=== PATIENT | male | born 1960 | race Caucasian/White ===

== ENCOUNTER 2018-03-09 19:43 | Emergency (ER) | payer BC ==
[~2018-03-09] VITALS: Ht 175.3 cm; Wt 115.1 kg
[2018-03-09 19:45] VITALS: TEMP 36.6; Ht 175.3 cm; Wt 115.1 kg
[2018-03-09] MEDS ORDERED: LIDOCAINE 1% BUFFERED INJ 20 ML VIAL INFIL ONE (20:00)
[2018-03-09] MEDS ORDERED: DIPHTHERIA/TETANUS/PERTUSSIS 0.5 ML SYR/VIAL IM. ONE (20:00)
[2018-03-09 20:49] VITALS: BP 145/104; PULSE 86; O2SAT 94
--- NOTE | 2018-03-09 23:59 | EMERGENCY ROOM VISIT NOTE ---
History First contact with patient: 19:49 Chief Complaint: LACERATION/CUT (SUT/DERMABOND) Stated Complaint: CUT ON THUMB Nursing Triage Summary: Laceration to left thumb History of Present Illness The patient is a 57 year old male who presents to the Emergency Room with complaints of a laceration to the left thumb from a propeller on his drone. The patient reports no significant bleeding, and rates his discomfort a 2 out of 10. The patient is right-hand dominant. He denies any paresthesias or numbness of the thumb tip. Patient is uncertain of his last tetanus immunization. Review of Systems 6 system review was performed and was negative except for pertinent positives and negatives as indicated in history of present illness Past Medical/Surgical History Medical Problems: (1) No significant past medical history Surgical Problems: (1) No history of previous surgery Family History Unremarkable Social History Smoking Status: Never Smoker Alcohol Use: none Marital Status: Housing Status: lives with family Occupation Status: employed Physical Exam Vital Signs Date Time Temp Pulse Resp B/P (MAP) Pulse Ox O2 Delivery O2 Flow Rate FiO2 03/09/18 20:49 86 18 145/104 94 03/09/18 19:45 36.6 103 18 151/100 94 Room Air Physical Exam CONSTITUTIONAL: Healthy and well nourished. Alert and oriented X 3 with positive affect. She does not appear in any acute distress. HEENT: Normocephalic, atraumatic. Pupils equal, round and reactive. NECK: Full active range of motion without discomfort. MUSCULOSKELETAL: Examination of the left thumb shows a 1.5 cm laceration across the dorsal IP joint. No active bleeding is noted. The patient is able to flex and extend the IP joint against resistance. Capillary refill of the fingertip is less than 2 seconds. INTEGUMENTARY: No rash or other significant dermatologic conditions noted. NEUROLOGIC: Left thumb tip is sensory intact. Medical Decision & Procedures Medications Administered Medications (Trade) Dose Ordered Sig/Caleb Route Start Time Stop Time Status Last Admin Dose Admin Lidocaine HCl (Buffered Lidocaine 1% Inj) 20 ml ONE ONCE INFIL 03/09/18 20:00 03/09/18 20:01 DC 03/09/18 20:03 20 ML Diphtheria/ Pertussis/Tetanus Vacc (Adacel Inj) 0.5 ml ONCE ONCE IM. 03/09/18 20:00 03/09/18 20:01 DC 03/09/18 20:05 0.5 ML Procedure Laceration repair was performed under local anesthesia after receiving verbal consent from the patient. Using buffered 1% lidocaine without epinephrine, good digital block anesthesia was administered. The wound was then peripherally cleansed with iodine, then copiously pressure irrigated with 100 cc of normal saline. Exploration of the wound does not show any obvious involvement of the tendon, joint or bone. The wound was then approximated using 5-0 nylon simple interrupted sutures. A bacitracin bandage was applied. ED Course Patient history and physical exam were performed. Nurse's notes were reviewed. Vital signs were reviewed, showing an elevated blood pressure 151/100. Laceration repair was performed under digital block anesthesia. The patient was provided additional verbal and written wound care instructions. Ice and elevation for swelling. Ibuprofen and Tylenol as needed for pain. Suture removal in 12-14 days, or seek reevaluation sooner for any signs of reinfection. I did instruct the patient to follow-up with orthopedics if for any reason he starts to notice any weakness and extensor effort of the finger. He was also instructed to follow-up with his PCP for blood pressure recheck. Medical Decision Medication Reconcilliation Current Medication List: was personally reviewed by me Blood Pressure Screening Patient's blood pressure: Elevated blood pressure Blood pressure disposition: Referred to PCP Impression Primary Impression: Laceration of left thumb Additional Impression: Elevated blood pressure reading Departure Information Dispostion Home / Self-Care Condition GOOD Forms HOME CARE DOCUMENTATION FORM, IMPORTANT VISIT INFORMATION Patient Instructions My [facility] Additional Instructions Keep wound clean and dry. Do not allow any crusting or dried blood to accumulate on sutures. If this occurs, use a 1:1 solution of hydrogen peroxide/ water on a Q-tip to clean the wound. Use an antibiotic ointment for 3-4 days, then let wound dry. Suture removal in 14 days. Return sooner for any signs of infection (increasing redness, swelling, drainage). Ice and elevate for swelling and pain. Ibuprofen 600 mg and/or Tylenol 1000 mg every 6 hrs if needed for pain. Problem Qualifiers
== END 2018-03-09 20:50 | disposition home or self-care (01) ==
LOC: C.EDB 19:47 → C.EDD 20:50
DX: S61.012A Laceration without foreign body of left thumb without damage to nail, initial encounter (principal); W26.8XXA Contact with other sharp object(s), not elsewhere classified, initial encounter; R03.0 Elevated blood-pressure reading, without diagnosis of hypertension